=== PATIENT | male | born 1945 | race Caucasian/White ===

== ENCOUNTER 2016-08-06 09:16 | Outpatient (RCR) | payer MEDICARE ==
--- OUTSIDE RECORDS SUMMARY | 2016-06-25 08:48 | XMS REPORT | Continuity of Care Document ---
Author Author [facility] Organization [facility] Address Unknown Phone Unavailable Care Team Providers Care Keymodule Assembly Machine Tender Name Role Phone LEONCIO YI DO PCP Insurance Providers Payer Name Policy Number Subscriber Name Relationship [employer] [id number] [place]ica Chambers 16 Self / Same As Patient Advance Directives Directive Response Recorded Date/Time Advance Directives No 01/11/16 11:15am Health Care Power of Aluminum Polisher No 01/11/16 11:15am Organ Donor No 01/11/16 11:15am Problems Active Problems Medical Problem Onset Date Status Drew's cyst of knee Unknown Acute Pain of right lower extremity Unknown Acute Small bowel obstruction Unknown Acute Swelling of right lower extremity Unknown Acute Medications Current Home Medications Medication Dose Units Route Directions Days/Qty Instructions Start Date Omeprazole 20 Mg 20 Mg Oral Daily 11/23/13 Atenolol 50 Mg 50 Mg Oral Daily 30 Days 12/08/13 Aspirin 81 Mg 81 Mg Oral Daily 0 03/21/14 Loratadine 10 Mg 10 Mg Oral 12/03/14 Tramadol Hcl 50 Mg 50 Mg Oral Every 4HRS as needed for Pain Prednisone 20 Mg 20 Mg Oral Twice A Day 01/11/16 Past Home Medications Medication Directions Ordered Status Multivitamin 1 Each Tablet, 1 Each Oral Daily 11/23/13 Discontinued Calcium Carbonate/Vitamin D3 1 Each Capsule, 1 Each Oral Daily 11/23/13 Discontinued Ca Cmb No.1/Vit D3/B-6/Fa/B12 1 Each Tablet, 1 Each Oral 11/23/13 Discontinued Aspirin 81 Mg Tabec, 81 Mg Oral Daily 11/27/13 Discontinued Acetaminophen/Hydrocodone Bitart 1 Each Tablet, 1-2 Each Oral Q 4 - 6 Hr Prn 12/08/13 Discontinued Ca Cmb No.1/Vit D3/B-6/Fa/B12 1 Each Tablet, 1 Each Oral Daily 03/19/14 Discontinued Vitamin E Mixed 400 Unit Tablet, 400 Unit Oral Daily 03/19/14 Discontinued Multivitamins W-Minerals/Lut 1 Each Tablet, 1 Each Oral Daily 03/19/14 Discontinued Tramadol Hcl 50 Mg Tablet, 50 Mg Oral Every 12 Hours for Pain 03/21/14 Discontinued Social History Social History Problem Response Recorded Date/Time Alcohol Use Denies Use 01/11/2016 11:15am Recreational Drug Use No 01/11/2016 11:15am Recent Foreign Travel No 02/18/2014 2:30am Recent Infectious Disease Exposure No 02/18/2014 2:30am Hospitalization with Isolation Denies 02/22/2014 11:15am Sexually Transmitted Disease No 01/11/2016 11:15am HIV/AIDS No 01/11/2016 11:15am Do you dip or chew tobacco? No 01/11/2016 11:15am Sexually Transmitted Disease No 01/11/2016 11:15am Hospitalization with Isolation Denies 02/22/2014 11:15am Hx Sexually Transmitted Disorders No 03/21/2014 6:00am Hospital Discharge Instructions No hospital discharge instructions. Plan of Care Prescriptions See Medication Section Functional Status No functional status results. Allergies, Adverse Reactions, Alerts No known allergies. Immunizations No immunization records. Vital Signs No known vital signs results. Results Laboratory Results Test Name Result Units Flags Reference Collection Date/Time Result Date/ Time Comments White Blood Count 9.8 10^3/uL 4.3-11.0 01/16/2016 9:57am 01/16/2016 10: 01am Red Blood Count 4.72 10^6/uL 4.35-5.85 01/16/2016 9:57am 01/16/2016 10: 01am Hemoglobin 14.5 G/DL 13.3-17.7 01/16/2016 9:57am 01/16/2016 10:01am Hematocrit 42 % 40-54 01/16/2016 9:57am 01/16/2016 10:01am Mean Corpuscular Volume 90 FL 80-99 01/16/2016 9:57am 01/16/2016 10: 01am Mean Corpuscular Hemoglobin 31 PG 25-34 01/16/2016 9:57am 01/16/2016 10 :01am Mean Corpuscular Hemoglobin Concent 34 G/DL 32-36 01/16/2016 9:57am 10:01am Red Cell Distribution Width 12.4 % 10.0-14.5 01/16/2016 9:57am 2015 10:01am Platelet Count 254 10^3/uL 130-400 01/16/2016 9:57am 01/16/2016 10: 01am Mean Platelet Volume 9.1 FL 7.4-10.4 01/16/2016 9:57am 01/16/2016 10: 01am Neutrophils (%) (Auto) 71 % 42-75 01/16/2016 9:57am 01/16/2016 10:01am Lymphocytes (%) (Auto) 20 % 12-44 01/16/2016 9:57am 01/16/2016 10:01am Monocytes (%) (Auto) 9 % 0-12 01/16/2016 9:57am 01/16/2016 10:01am Eosinophils (%) (Auto) 0 % 0-10 01/16/2016 9:57am 01/16/2016 10:01am Basophils (%) (Auto) 0 % 0-10 01/16/2016 9:57am 01/16/2016 10:01am Neutrophils # (Auto) 7.0 X 10^3 1.8-7.8 01/16/2016 9:57am 01/16/2016 10 :01am Lymphocytes # (Auto) 2.0 X 10^3 1.0-4.0 01/16/2016 9:57am 01/16/2016 10 :01am Monocytes # (Auto) 0.8 X 10^3 0.0-1.0 01/16/2016 9:57am 01/16/2016 10: 01am Eosinophils # (Auto) 0.0 10^3/uL 0.0-0.3 01/16/2016 9:57am 01/16/2016 10:01am Basophils # (Auto) 0.0 10^3/uL 0.0-0.1 01/16/2016 9:57am 01/16/2016 10: 01am Sodium Level 136 MMOL/L 135-145 01/16/2016 9:57am 01/16/2016 10:45am Potassium Level 4.8 MMOL/L 3.6-5.0 01/16/2016 9:57am 01/16/2016 10: 45am Chloride Level 100 MMOL/L 98-107 01/16/2016 9:57am 01/16/2016 10:45am Carbon Dioxide Level 26 MMOL/L 21-32 01/16/2016 9:57am 01/16/2016 10: 45am Anion Gap 10 MMOL/L 5-14 01/16/2016 9:57am 01/16/2016 10:45am Blood Urea Nitrogen 19 MG/DL H 7-18 01/16/2016 9:57am 01/16/2016 10:45am Creatinine 0.92 MG/DL 0.60-1.30 01/16/2016 9:57am 01/16/2016 10:45am BUN/Creatinine Ratio 21 01/16/2016 9:57am 01/16/2016 10:45am Estimat Glomerular Filtration Rate > 60 01/16/2016 9:57am 2015 10:45am GFR INTERPRETIVE DATA UNITS FOR ESTIMATED GFR (eGFR): mL/min/1.73 M2 REFERENCE RANGE FOR ESTIMATED GFR (eGFR) eGFR NORMAL eGFR >60 MODERATELY DECREASED eGFR 30-59 SEVERLY DECREASED eGFR 15-29 KIDNEY FAILURE <15 (OR DIALYSIS) Glucose Level 91 MG/DL 70-105 01/16/2016 9:57am 01/16/2016 10:45am Calcium Level 9.4 MG/DL 8.5-10.1 01/16/2016 9:57am 01/16/2016 10:45am Total Bilirubin 0.5 MG/DL 0.1-1.0 01/16/2016 9:57am 01/16/2016 10:45am Alkaline Phosphatase 31 U/L L 40-136 01/16/2016 9:57am 01/16/2016 10: 45am Aspartate Amino Transf (AST/SGOT) 11 U/L 5-34 01/16/2016 9:57am 2015 10:45am Alanine Aminotransferase (ALT/SGPT) 14 U/L 0-55 01/16/2016 9:57am 01/15 10:45am Total Protein 7.0 G/DL 6.4-8.2 01/16/2016 9:57am 01/16/2016 10:45am Albumin 4.3 G/DL 3.2-4.5 01/16/2016 9:57am 01/16/2016 10:45am Procedures No known history of procedures. Encounters Encounter Location Arrival/Admit Date Discharge/Depart Date Attending Provider Discharged Rec[facility]ring [facility] 01/16/16 9:31am 11:59pm RONALD EASTMAN
[2016-06-25 09:10] LABS: BASOPHILS % (AUTO) 0 % (0-10); EOSINOPHILS # (AUTO) 0.2 10^3/uL (0.0-0.3); EOSINOPHILS % (AUTO) 3 % (0-10); LYMPHOCYTES # (AUTO) 1.5 X 10^3 (1.0-4.0); LYMPHOCYTES % (AUTO) 27 % (12-44); MEAN CORPUSCULAR HEMOGLOBIN 31 PG (25-34); MEAN CORPUSCULAR HGB CONC 35 G/DL (32-36); MEAN CORPUSCULAR VOLUME 90 FL (80-99); MEAN PLATELET VOLUME 8.9 FL (7.4-10.4); MONOCYTES # (AUTO) 0.5 X 10^3 (0.0-1.0); MONOCYTES % (AUTO) 9 % (0-12); NEUTROPHILS # (AUTO) 3.4 X 10^3 (1.8-7.8); NEUTROPHILS % (AUTO) 61 % (42-75); PLATELET COUNT 247 10^3/uL (130-400); RED CELL DISTRIBUTION WIDTH 12.5 % (10.0-14.5); WHITE BLOOD COUNT 5.6 10^3/uL (4.3-11.0)
[2016-06-25 09:36] LABS: ALANINE AMINOTRANSFERASE 17 U/L (0-55); ALBUMIN 4.3 G/DL (3.2-4.5); ANION GAP 6 MMOL/L (5-14); ASPARTATE AMINO TRANSFERASE 17 U/L (5-34); BILIRUBIN,TOTAL 0.7 MG/DL (0.1-1.0); BLOOD UREA NITROGEN 15 MG/DL (7-18); BUN/CREATININE RATIO 16; CALCIUM 9.6 MG/DL (8.5-10.1); CARBON DIOXIDE 27 MMOL/L (21-32); CHLORIDE 100 MMOL/L (98-107); CREATININE SERUM 0.95 MG/DL (0.60-1.30); GFR ESTIMATED > 60; GLUCOSE 102 MG/DL (70-105); SODIUM 133 MMOL/L (135-145); TOTAL PROTEIN 7.1 G/DL (6.4-8.2)
[~2016-08-06 09:16] MED LIST: ASP81TEC PO; ATEN-158 PO; CA C1TAB26 PO; CALC1CAP21 PO; HYDR-707 PO; LORA10TA7 PO; MULT-850 PO; MULT-974 PO; OMEP20CA12 PO; PRD20T PO; TRAM-21 PO; TRAM50TA2 PO; VITA400T9 PO
== END 2016-09-23 | disposition home or self-care (01) ==
LOC: ONC 09:16
PROVIDERS: ATTEND Internal Medicine Hematology & Oncology
DX: C18.7 Malignant neoplasm of sigmoid colon (principal); N40.0 Benign prostatic hyperplasia without lower urinary tract symptoms; Z79.899 Other long term (current) drug therapy
CPT/HCPCS: 36415; 80053; 82378; 84153; 85025; 99213

== ENCOUNTER 2016-12-24 09:14 | Outpatient (RCR) | payer MEDICARE ==
[2016-12-24 09:42] LABS: BASOPHILS % (AUTO) 1 % (0-10); EOSINOPHILS # (AUTO) 0.2 10^3/uL (0.0-0.3); EOSINOPHILS % (AUTO) 4 % (0-10); LYMPHOCYTES # (AUTO) 1.4 X 10^3 (1.0-4.0); LYMPHOCYTES % (AUTO) 26 % (12-44); MEAN CORPUSCULAR HEMOGLOBIN 31 PG (25-34); MEAN CORPUSCULAR HGB CONC 34 G/DL (32-36); MEAN CORPUSCULAR VOLUME 91 FL (80-99); MEAN PLATELET VOLUME 8.9 FL (7.4-10.4); MONOCYTES # (AUTO) 0.5 X 10^3 (0.0-1.0); MONOCYTES % (AUTO) 8 % (0-12); NEUTROPHILS # (AUTO) 3.4 X 10^3 (1.8-7.8); NEUTROPHILS % (AUTO) 61 % (42-75); PLATELET COUNT 228 10^3/uL (130-400); RED BLOOD COUNT 4.46 10^6/uL (4.35-5.85); RED CELL DISTRIBUTION WIDTH 12.8 % (10.0-14.5); WHITE BLOOD COUNT 5.5 10^3/uL (4.3-11.0)
[2016-12-24 10:34] LABS: ALANINE AMINOTRANSFERASE 16 U/L (0-55); ALBUMIN 3.9 G/DL (3.2-4.5); ANION GAP 9 MMOL/L (5-14); ASPARTATE AMINO TRANSFERASE 14 U/L (5-34); BILIRUBIN,TOTAL 0.4 MG/DL (0.1-1.0); BLOOD UREA NITROGEN 12 MG/DL (7-18); BUN/CREATININE RATIO 13; CALCIUM 9.3 MG/DL (8.5-10.1); CARBON DIOXIDE 23 MMOL/L (21-32); CHLORIDE 104 MMOL/L (98-107); CREATININE SERUM 0.91 MG/DL (0.60-1.30); GFR ESTIMATED > 60; GLUCOSE 106 MG/DL (70-105); POTASSIUM 4.8 MMOL/L (3.6-5.0); SODIUM 136 MMOL/L (135-145); TOTAL PROTEIN 6.9 G/DL (6.4-8.2)
== END 2017-03-24 | disposition home or self-care (01) ==
LOC: ONC 09:14
PROVIDERS: ATTEND Internal Medicine Hematology & Oncology
DX: Z08 Encounter for follow-up examination after completed treatment for malignant neoplasm (principal); Z85.038 Personal history of other malignant neoplasm of large intestine; N40.0 Benign prostatic hyperplasia without lower urinary tract symptoms; E66.9 Obesity, unspecified; Z68.37 Body mass index [BMI] 37.0-37.9, adult; M17.0 Bilateral primary osteoarthritis of knee; Z79.899 Other long term (current) drug therapy
CPT/HCPCS: 36415; 80053; 82378; 84153; 85025; 99213

== ENCOUNTER 2017-06-30 08:20 | Outpatient (RCR) | payer MEDICARE ==
[2017-06-30 08:48] LABS: BASOPHILS # (AUTO) 0.1 10^3/uL (0.0-0.1); BASOPHILS % (AUTO) 1 % (0-10); EOSINOPHILS # (AUTO) 0.2 10^3/uL (0.0-0.3); EOSINOPHILS % (AUTO) 4 % (0-10); HEMATOCRIT 42 % (40-54); HEMOGLOBIN 14.1 G/DL (13.3-17.7); LYMPHOCYTES # (AUTO) 1.7 X 10^3 (1.0-4.0); LYMPHOCYTES % (AUTO) 29 % (12-44); MEAN CORPUSCULAR HEMOGLOBIN 31 PG (25-34); MEAN CORPUSCULAR HGB CONC 34 G/DL (32-36); MEAN CORPUSCULAR VOLUME 93 FL (80-99); MEAN PLATELET VOLUME 9.3 FL (7.4-10.4); MONOCYTES # (AUTO) 0.6 X 10^3 (0.0-1.0); MONOCYTES % (AUTO) 9 % (0-12); NEUTROPHILS # (AUTO) 3.5 X 10^3 (1.8-7.8); NEUTROPHILS % (AUTO) 58 % (42-75); PLATELET COUNT 240 10^3/uL (130-400); RED BLOOD COUNT 4.54 10^6/uL (4.35-5.85); RED CELL DISTRIBUTION WIDTH 12.4 % (10.0-14.5)
[2017-06-30 09:04] LABS: ALANINE AMINOTRANSFERASE 19 U/L (0-55); ALBUMIN 4.2 GM/DL (3.2-4.5); ALKALINE PHOSPHATASE 36 U/L (40-136); BILIRUBIN,TOTAL 0.7 MG/DL (0.1-1.0); BUN/CREATININE RATIO 11; CALCIUM 9.7 MG/DL (8.5-10.1); CARBON DIOXIDE 28 MMOL/L (21-32); CHLORIDE 101 MMOL/L (98-107); CREATININE SERUM 1.05 MG/DL (0.60-1.30); GFR ESTIMATED > 60; GLUCOSE 118 MG/DL (70-105); POTASSIUM 5.4 MMOL/L (3.6-5.0); SODIUM 137 MMOL/L (135-145); TOTAL PROTEIN 7.6 GM/DL (6.4-8.2)
== END 2017-09-28 | disposition home or self-care (01) ==
LOC: ONC 08:20
PROVIDERS: ATTEND Internal Medicine Hematology & Oncology
DX: Z08 Encounter for follow-up examination after completed treatment for malignant neoplasm (principal); Z85.038 Personal history of other malignant neoplasm of large intestine; N40.0 Benign prostatic hyperplasia without lower urinary tract symptoms; E66.9 Obesity, unspecified; Z68.36 Body mass index [BMI] 36.0-36.9, adult; M17.0 Bilateral primary osteoarthritis of knee; Z79.899 Other long term (current) drug therapy
CPT/HCPCS: 36415; 80053; 82378; 84153; 85025; 99213

== ENCOUNTER 2018-01-18 08:20 | Outpatient (RCR) | payer MEDICARE ==
[2017-11-24 09:12] LABS: BASOPHILS % (AUTO) 1 % (0-10); EOSINOPHILS # (AUTO) 0.2 10^3/uL (0.0-0.3); EOSINOPHILS % (AUTO) 3 % (0-10); HEMATOCRIT 39 % (40-54); HEMOGLOBIN 13.7 G/DL (13.3-17.7); LYMPHOCYTES # (AUTO) 1.3 X 10^3 (1.0-4.0); LYMPHOCYTES % (AUTO) 27 % (12-44); MEAN CORPUSCULAR HEMOGLOBIN 32 PG (25-34); MEAN CORPUSCULAR HGB CONC 35 G/DL (32-36); MEAN CORPUSCULAR VOLUME 92 FL (80-99); MEAN PLATELET VOLUME 8.9 FL (7.4-10.4); MONOCYTES # (AUTO) 0.4 X 10^3 (0.0-1.0); MONOCYTES % (AUTO) 8 % (0-12); NEUTROPHILS % (AUTO) 61 % (42-75); PLATELET COUNT 218 10^3/uL (130-400); RED BLOOD COUNT 4.29 10^6/uL (4.35-5.85); WHITE BLOOD COUNT 4.9 10^3/uL (4.3-11.0)
[2017-11-24 09:33] LABS: ALANINE AMINOTRANSFERASE 12 U/L (0-55); ALBUMIN 4.1 GM/DL (3.2-4.5); ALKALINE PHOSPHATASE 28 U/L (40-136); BILIRUBIN,TOTAL 0.5 MG/DL (0.1-1.0); BUN/CREATININE RATIO 14; CALCIUM 9.3 MG/DL (8.5-10.1); CARBON DIOXIDE 26 MMOL/L (21-32); CHLORIDE 104 MMOL/L (98-107); CREATININE SERUM 0.83 MG/DL (0.60-1.30); GFR ESTIMATED > 60; GLUCOSE 110 MG/DL (70-105); POTASSIUM 4.8 MMOL/L (3.6-5.0); SODIUM 135 MMOL/L (135-145)
[2018-01-18 09:22] LABS: BASOPHILS % (AUTO) 1 % (0-10); EOSINOPHILS # (AUTO) 0.3 10^3/uL (0.0-0.3); EOSINOPHILS % (AUTO) 5 % (0-10); HEMATOCRIT 40 % (40-54); HEMOGLOBIN 14.1 G/DL (13.3-17.7); LYMPHOCYTES # (AUTO) 1.4 X 10^3 (1.0-4.0); LYMPHOCYTES % (AUTO) 24 % (12-44); MEAN CORPUSCULAR HEMOGLOBIN 32 PG (25-34); MEAN CORPUSCULAR HGB CONC 35 G/DL (32-36); MEAN CORPUSCULAR VOLUME 91 FL (80-99); MEAN PLATELET VOLUME 9.5 FL (7.4-10.4); MONOCYTES # (AUTO) 0.5 X 10^3 (0.0-1.0); MONOCYTES % (AUTO) 8 % (0-12); NEUTROPHILS # (AUTO) 3.7 X 10^3 (1.8-7.8); NEUTROPHILS % (AUTO) 63 % (42-75); PLATELET COUNT 222 10^3/uL (130-400); RED BLOOD COUNT 4.38 10^6/uL (4.35-5.85); RED CELL DISTRIBUTION WIDTH 12.9 % (10.0-14.5); WHITE BLOOD COUNT 5.8 10^3/uL (4.3-11.0)
[2018-01-18 09:45] LABS: ALANINE AMINOTRANSFERASE 18 U/L (0-55); ALBUMIN 4.1 GM/DL (3.2-4.5); ALKALINE PHOSPHATASE 32 U/L (40-136); BILIRUBIN,TOTAL 0.5 MG/DL (0.1-1.0); BUN/CREATININE RATIO 15; CALCIUM 9.6 MG/DL (8.5-10.1); CARBON DIOXIDE 22 MMOL/L (21-32); CHLORIDE 104 MMOL/L (98-107); CREATININE SERUM 0.85 MG/DL (0.60-1.30); GFR ESTIMATED > 60; GLUCOSE 106 MG/DL (70-105); POTASSIUM 4.5 MMOL/L (3.6-5.0); SODIUM 135 MMOL/L (135-145)
== END 2018-02-22 | disposition home or self-care (01) ==
LOC: ONC 08:20
PROVIDERS: ATTEND Internal Medicine Hematology & Oncology
DX: Z08 Encounter for follow-up examination after completed treatment for malignant neoplasm (principal); Z85.038 Personal history of other malignant neoplasm of large intestine; N40.0 Benign prostatic hyperplasia without lower urinary tract symptoms; M17.0 Bilateral primary osteoarthritis of knee; E66.9 Obesity, unspecified; Z68.36 Body mass index [BMI] 36.0-36.9, adult; Z79.899 Other long term (current) drug therapy
CPT/HCPCS: 36415; 80053; 82378; 85025; 99213

== ENCOUNTER 2018-06-01 05:37 | Outpatient (CLI) | payer MEDICARE ==
[~2018-06-01] VITALS: Ht 175.3 cm; Wt 105.7 kg
[2018-06-01] MEDS ORDERED: ATEN50TA PO (12:45)
[2018-06-01] MEDS ORDERED: VITA400C60 PO (12:45)
[2018-06-01] MEDS ORDERED: ASPI-999 PO (12:45)
[2018-06-01] MEDS ORDERED: OMEP20CA12 PO (12:45)
[2018-06-01] MEDS ORDERED: CHOL2000 PO (12:45)
[2018-06-01] MEDS ORDERED: MULT-35 PO (12:45)
== END 2018-06-01 12:53 | disposition home or self-care (01) ==
LOC: PREOP 05:37
PROVIDERS: ATTEND Specialist
DX: Z01.818 Encounter for other preprocedural examination (principal)

== ENCOUNTER 2018-06-01 08:41 | Outpatient (RCR) | payer MEDICARE ==
[2018-06-01 08:52] LABS: BASOPHILS % (AUTO) 0 % (0-10); EOSINOPHILS # (AUTO) 0.2 10^3/uL (0.0-0.3); EOSINOPHILS % (AUTO) 2 % (0-10); HEMATOCRIT 44 % (40-54); HEMOGLOBIN 14.9 G/DL (13.3-17.7); LYMPHOCYTES # (AUTO) 2.6 X 10^3 (1.0-4.0); LYMPHOCYTES % (AUTO) 29 % (12-44); MEAN CORPUSCULAR HEMOGLOBIN 31 PG (25-34); MEAN CORPUSCULAR HGB CONC 34 G/DL (32-36); MEAN CORPUSCULAR VOLUME 92 FL (80-99); MONOCYTES # (AUTO) 0.8 X 10^3 (0.0-1.0); MONOCYTES % (AUTO) 9 % (0-12); NEUTROPHILS # (AUTO) 5.4 X 10^3 (1.8-7.8); NEUTROPHILS % (AUTO) 60 % (42-75); PLATELET COUNT 255 10^3/uL (130-400); RED CELL DISTRIBUTION WIDTH 13.2 % (10.0-14.5); WHITE BLOOD COUNT 9.1 10^3/uL (4.3-11.0)
[2018-06-01 09:19] LABS: ALANINE AMINOTRANSFERASE 15 U/L (0-55); ALBUMIN 4.3 GM/DL (3.2-4.5); ALKALINE PHOSPHATASE 36 U/L (40-136); BILIRUBIN,TOTAL 0.5 MG/DL (0.1-1.0); BUN/CREATININE RATIO 23; CALCIUM 9.8 MG/DL (8.5-10.1); CARBON DIOXIDE 25 MMOL/L (21-32); CHLORIDE 99 MMOL/L (98-107); CREATININE SERUM 0.95 MG/DL (0.60-1.30); GFR ESTIMATED > 60; GLUCOSE 105 MG/DL (70-105); POTASSIUM 4.4 MMOL/L (3.6-5.0); SODIUM 134 MMOL/L (135-145); TOTAL PROTEIN 7.4 GM/DL (6.4-8.2)
[2018-06-01] MEDS ORDERED: ATEN50TA PO (12:45)
[2018-06-01] MEDS ORDERED: MULT-35 PO (12:45)
[2018-06-01] MEDS ORDERED: OMEP20CA12 PO (12:45)
[2018-06-01] MEDS ORDERED: VITA400C60 PO (12:45)
[2018-06-01] MEDS ORDERED: CHOL2000 PO (12:45)
[2018-06-01] MEDS ORDERED: ASPI-999 PO (12:45)
== END 2018-08-30 | disposition home or self-care (01) ==
LOC: ONC 08:41
PROVIDERS: ATTEND Internal Medicine Hematology & Oncology
DX: Z08 Encounter for follow-up examination after completed treatment for malignant neoplasm (principal); Z85.038 Personal history of other malignant neoplasm of large intestine; N40.0 Benign prostatic hyperplasia without lower urinary tract symptoms; M17.0 Bilateral primary osteoarthritis of knee; E66.9 Obesity, unspecified; Z68.36 Body mass index [BMI] 36.0-36.9, adult; Z79.899 Other long term (current) drug therapy
CPT/HCPCS: 36415; 80053; 82378; 85025; 99213

== ENCOUNTER 2018-06-03 06:41 | Day surgery (SDC) | payer MEDICARE ==
[~2018-06-03] VITALS: Ht 175.3 cm; Wt 105.7 kg
[~2018-06-03 06:41] MED LIST changes: +ASPI-999 PO; +ATEN50TA PO; +CHOL2000 PO; +MULT-35 PO; +VITA400C60 PO
[2018-06-03 06:59] VITALS: BP 146/64
[2018-06-03] MEDS: TETRACAINE 0.5% OPHTH SOLN 4 ML BTL (SINGLE DOSE ONLY) OU PRN ×4 (07:01→07:19)
[2018-06-03] MEDS: TROPICAMIDE 1% OPH SOLN (MYDRIACYL) 15 ML BTL OU PRN ×3 (07:06→07:19)
[2018-06-03] MEDS: PHENYLEPHRINE 10% OPHTH (NEO-SYN) 5 ML BTL OU PRN ×3 (07:06→07:19)
[2018-06-03 08:00] VITALS: BP 146/64
--- NOTE | 2018-06-03 08:03 | Ophthalmologist Pre-Op Note ---
Pre-Operative Progress Note H&P Reviewed The H&P was reviewed, patient examined and no changes noted. Date H&P Reviewed: Jun 03, 2018 Time H&P Reviewed: 07:50 Pre-Op Dx Secondary Cataract, Bilateral Eyes KALA NESBITT MD Jun 03, 2018 08:03
--- NOTE | 2018-06-03 08:04 | Ophthalmology Operative Report ---
YAG Capsulotomy PREOPERATIVE DIAGNOSIS: Secondary Cataract Bilateral POSTOPERATIVE DIAGNOSIS: Secondary Cataract Bilateral PROCEDURE: YAG Capsulotomy, Bilateral SURGEON: Jai Nesbitt ANESTHESIA: Topical anesthesia COMPLICATIONS: None ESTIMATED BLOOD LOSS: Minimal DESCRIPTION OF PROCEDURE: After proper informed consent was obtained, the patient's, a 73 male , received one drop of Tropicamide and one drop of Tetracaine in each eye. The patient was then placed at the YAG laser and using a power of [ 4.5] millijoules and bursts [ 25] right eye and [ 21] left eye were used to fashion a central capsulotomy. The patient tolerated the procedure well without complications and the patient's pressure was [ 11/12] shortly after the laser. JAI NESBITT MD Jun 03, 2018 08:04
== END 2018-06-03 08:00 | disposition home or self-care (01) ==
LOC: SDC 06:41
PROVIDERS: ATTEND Specialist
DX: H26.493 Other secondary cataract, bilateral (principal); I10 Essential (primary) hypertension; Z85.038 Personal history of other malignant neoplasm of large intestine; Z80.1 Family history of malignant neoplasm of trachea, bronchus and lung; Z87.891 Personal history of nicotine dependence

== ENCOUNTER → 2020-01-17 | Outpatient (CLI) | payer MEDICARE ==
[~2020-01-17] MED LIST changes: +OMEP20CA18 PO; -TRAM50TA2 PO; +TRM50T PO
[2020-01-17 13:09] LABS: BASOPHILS % (AUTO) 0 % (0-10); EOSINOPHILS # (AUTO) 0.2 10^3/uL (0.0-0.3); EOSINOPHILS % (AUTO) 4 % (0-10); HEMATOCRIT 40 % (40-54); HEMOGLOBIN 13.8 G/DL (13.3-17.7); LYMPHOCYTES # (AUTO) 1.9 X 10^3 (1.0-4.0); LYMPHOCYTES % (AUTO) 27 % (12-44); MEAN CORPUSCULAR HEMOGLOBIN 31 PG (25-34); MEAN CORPUSCULAR HGB CONC 34 G/DL (32-36); MEAN CORPUSCULAR VOLUME 91 FL (80-99); MEAN PLATELET VOLUME 9.3 FL (7.4-10.4); MONOCYTES # (AUTO) 0.6 X 10^3 (0.0-1.0); MONOCYTES % (AUTO) 8 % (0-12); NEUTROPHILS # (AUTO) 4.1 X 10^3 (1.8-7.8); NEUTROPHILS % (AUTO) 60 % (42-75); PLATELET COUNT 209 10^3/uL (130-400); RED CELL DISTRIBUTION WIDTH 12.8 % (10.0-14.5); WHITE BLOOD COUNT 6.9 10^3/uL (4.3-11.0)
[2020-01-17 13:20] LABS: ALBUMIN 4.2 GM/DL (3.2-4.5)
[2020-01-17 13:21] LABS: CHLORIDE 103 MMOL/L (98-107); POTASSIUM 4.2 MMOL/L (3.6-5.0); SODIUM 133 MMOL/L (135-145)
[2020-01-17 13:22] LABS: CALCIUM 9.1 MG/DL (8.5-10.1)
[2020-01-17 13:23] LABS: GLUCOSE 88 MG/DL (70-105); TOTAL PROTEIN 7.1 GM/DL (6.4-8.2)
[2020-01-17 13:24] LABS: CARBON DIOXIDE 21 MMOL/L (21-32)
[2020-01-17 13:25] LABS: BILIRUBIN,TOTAL 0.7 MG/DL (0.1-1.0)
[2020-01-17 13:26] LABS: ALKALINE PHOSPHATASE 33 U/L (40-136)
[2020-01-17 13:27] LABS: CREATININE SERUM 0.87 MG/DL (0.60-1.30); GFR ESTIMATED > 60
[2020-01-17 13:28] LABS: BUN/CREATININE RATIO 15
[2020-01-17 13:30] LABS: ALANINE AMINOTRANSFERASE 20 U/L (0-55)
== END ==
LOC: EDSTATUS 03-01 10:42 → ONC 12:51
PROVIDERS: ATTEND Internal Medicine Hematology & Oncology
DX: Z08 Encounter for follow-up examination after completed treatment for malignant neoplasm (principal); Z85.038 Personal history of other malignant neoplasm of large intestine; N40.0 Benign prostatic hyperplasia without lower urinary tract symptoms; M17.0 Bilateral primary osteoarthritis of knee; E66.9 Obesity, unspecified; Z68.36 Body mass index [BMI] 36.0-36.9, adult; Z79.899 Other long term (current) drug therapy
CPT/HCPCS: 80053; 82378; 85025; G0463; 99213

== ENCOUNTER → 2020-04-16 | Outpatient (CLI) | payer MEDICARE | LOC: ONC 08:59 | PROVIDERS: ATTEND Internal Medicine Hematology & Oncology | DX: C18.9 Malignant neoplasm of colon, unspecified (principal) | CPT/HCPCS: 82378 ==

== ENCOUNTER → 2020-04-23 | Outpatient (CLI) | payer MEDICARE ==
[2020-04-23 11:07] LABS: BASOPHILS % (AUTO) 1 % (0-10); EOSINOPHILS # (AUTO) 0.2 10^3/uL (0.0-0.3); EOSINOPHILS % (AUTO) 3 % (0-10); HEMATOCRIT 43 % (40-54); HEMOGLOBIN 14.3 g/dL (13.3-17.7); LYMPHOCYTES # (AUTO) 1.5 10^3/uL (1.0-4.0); LYMPHOCYTES % (AUTO) 24 % (12-44); MEAN CORPUSCULAR HEMOGLOBIN 31 pg (25-34); MEAN CORPUSCULAR HGB CONC 33 g/dL (32-36); MEAN CORPUSCULAR VOLUME 92 fL (80-99); MEAN PLATELET VOLUME 9.2 fL (9.0-12.2); MONOCYTES # (AUTO) 0.5 10^3/uL (0.0-1.0); MONOCYTES % (AUTO) 9 % (0-12); NEUTROPHILS # (AUTO) 3.9 10^3/uL (1.8-7.8); NEUTROPHILS % (AUTO) 64 % (42-75); PLATELET COUNT 216 10^3/uL (130-400); WHITE BLOOD COUNT 6.2 10^3/uL (4.3-11.0)
[2020-04-23 11:27] LABS: ALANINE AMINOTRANSFERASE 17 U/L (0-55); ALBUMIN 4.2 GM/DL (3.2-4.5); ALKALINE PHOSPHATASE 33 U/L (40-136); BILIRUBIN,TOTAL 0.6 MG/DL (0.1-1.0); BUN/CREATININE RATIO 12; CALCIUM 9.1 MG/DL (8.5-10.1); CARBON DIOXIDE 19 MMOL/L (21-32); CHLORIDE 100 MMOL/L (98-107); GFR ESTIMATED > 60; GLUCOSE 106 MG/DL (70-105); POTASSIUM 4.6 MMOL/L (3.6-5.0); SODIUM 130 MMOL/L (135-145); TOTAL PROTEIN 7.1 GM/DL (6.4-8.2)
== END ==
LOC: ONC 10:57
PROVIDERS: ATTEND Internal Medicine Hematology & Oncology
DX: C18.9 Malignant neoplasm of colon, unspecified (principal); R97.0 Elevated carcinoembryonic antigen [CEA]
CPT/HCPCS: 80053; 85025

== ENCOUNTER → 2020-04-30 | Outpatient (CLI) | payer MEDICARE ==
[~2020-04-30] MED LIST changes: +CATHETER FLUSH 10 ML SYR IV PRN; +HOLD METFORMIN - RECEIVED CONTRAST 20 ML VIAL IV SCH; +IOHEXOL 350 MG/ML 100 ML (OMNIPAQUE 350) VIAL IV ONE; +NS 100 ML (IVPB) BAG IV ONE
--- NOTE | 2020-04-30 10:48 | Diagnostic Imaging Report ---
PROCEDURE: CT chest with contrast, CT abdomen and pelvis with and without contrast. TECHNIQUE: Pre and post intravenous contrast axial imaging of the abdomen and pelvis and post contrast axial imaging of the chest were performed. Auto Exposure Controls were utilized during the CT exam to meet ALARA standards for radiation dose reduction. INDICATION: Colon cancer with elevated CEA markers. COMPARISON: CT abdomen and pelvis from 02/18/2014 and PET/CT of 01/01/2015. FINDINGS: CT CHEST: No endoluminal nodule within the trachea. The part solid lesion in the right upper lobe with central air-filled cavitation has increased in size since PET/CT of 01/01/2015, now measuring 3.2 cm in maximal dimension (previously 2.4 cm). No new pulmonary nodule or mass. Thyroid is normal. No supraclavicular or axillary lymphadenopathy. No mediastinal, hilar or juxtaphrenic lymphadenopathy. Heart is normal in size without pericardial effusion. Coronary artery calcifications are unchanged. Normal caliber thoracic aorta. Esophagus is unremarkable. No lytic or blastic skeletal lesions in the chest. CT ABDOMEN AND PELVIS: No free intraperitoneal air or fluid. The liver enhances normally without focal lesion that would suggest metastasis. Gallbladder is normal. The spleen and pancreas are also normal. No adrenal mass. Kidneys enhance symmetrically without solid mass lesion or obstruction. There are a few benign cysts within the left kidney that are stable since prior examination and measure no more than 1.5 cm in size. The urinary bladder is normally filled. The prostate remains mildly enlarged measuring 6.6 cm in maximal dimension. Stomach is decompressed. No dilated loops of bowel. Appendix is normal. No pericolonic inflammatory change. Anastomotic staple line is present in the rectosigmoid colon and there is no abnormal soft tissue along the anastomosis. No regional lymphadenopathy or abdominal lymphadenopathy. No lytic or blastic skeletal lesions. Mild degenerative arthritis of the SI joints. IMPRESSION: 1. Part solid and central cavitary lesion in the right upper lobe has mildly increased in size since PET/CT of five years prior (01/01/2015). Given slow open shank coverer five years, this most likely represents a low-grade primary adenocarcinoma of the lung. Superimposed infection on chronic lesion is thought less likely. Consider CT-guided biopsy for further assessment, if deemed clinically warranted. PET/CT may be useful, although given the slow growth of this lesion, it may not be hypermetabolic reactive. 2. No lymphadenopathy in the chest. 3. No abnormality in the abdomen or pelvis that would indicate local recurrence or metastatic disease. Dictated by: Dictated on workstation # [id number]
== END ==
LOC: RAD 09:23
PROVIDERS: ATTEND Nurse Practitioner Adult Health
DX: C18.7 Malignant neoplasm of sigmoid colon (principal); R91.1 Solitary pulmonary nodule; R97.0 Elevated carcinoembryonic antigen [CEA]
CPT/HCPCS: 71260; 74178

== ENCOUNTER 2020-05-06 09:23 | Outpatient (CLI) | payer MEDICARE ==
[~2020-05-06] VITALS: Ht 175.3 cm; Wt 107.7 kg
[~2020-05-06 09:23] MED LIST changes: -CATHETER FLUSH 10 ML SYR IV PRN; -HOLD METFORMIN - RECEIVED CONTRAST 20 ML VIAL IV SCH; -IOHEXOL 350 MG/ML 100 ML (OMNIPAQUE 350) VIAL IV ONE; -NS 100 ML (IVPB) BAG IV ONE
[2020-05-06 09:30] VITALS: BP 139/75
--- NOTE | 2020-05-06 10:15 | NUR ---
DR BATISTA TO PT'S ROOM TO DISCUSS CANCELLATION OF CT LUNG BIOPSY DUE TO POSSIBILITY OF NEED FOR ADMISSION POST PROCEDURE IN LIGHT OF COVID 19 ADMISSION RESTRICTIONS
[2020-05-06] MEDS ORDERED: CARB15DR2 OU (10:25)
[2020-05-06] MEDS ORDERED: OLOP2.5D12 OU (10:25)
[2020-05-06] MEDS ORDERED: MULT-1136 PO (10:25)
== END 2020-05-06 10:15 | disposition home or self-care (01) ==
LOC: SDC 09:23
PROVIDERS: ATTEND Nurse Practitioner Adult Health
DX: R91.8 Other nonspecific abnormal finding of lung field (principal); R93.89 Abnormal findings on diagnostic imaging of other specified body structures; Z86.010 Personal history of colon polyps

== ENCOUNTER → 2020-10-10 | Outpatient (CLI) | payer MEDICARE ==
[~2020-10-10] MED LIST changes: +CARB15DR2 OU; +MULT-1136 PO; +OLOP2.5D12 OU
--- NOTE | 2020-10-10 13:06 | Diagnostic Imaging Report ---
INDICATION: Left knee pain and swelling. Time of exam 10:42 AM 3 views left knee demonstrate fairly significant medial and patellofemoral compartment degenerative change with joint space narrowing and marginal spurring. Lateral compartments maintained. There is spurring of the tibial spines. No fracture, dislocation or effusion is seen. IMPRESSION: Degenerative changes. No acute bony abnormality is detected. Dictated by: Dictated on workstation # [id number]
== END ==
LOC: RAD 10:23
PROVIDERS: ATTEND Family Medicine
DX: M17.12 Unilateral primary osteoarthritis, left knee (principal)
CPT/HCPCS: 73562

== ENCOUNTER → 2020-12-31 | Outpatient (CLI) | payer MEDICARE ==
[2020-12-31 08:59] LABS: BASOPHILS % (AUTO) 1 % (0-10); EOSINOPHILS # (AUTO) 0.2 10^3/uL (0.0-0.3); EOSINOPHILS % (AUTO) 4 % (0-10); HEMATOCRIT 42 % (40-54); HEMOGLOBIN 14.2 g/dL (13.3-17.7); LYMPHOCYTES % (AUTO) 19 % (12-44); MEAN CORPUSCULAR HEMOGLOBIN 32 pg (25-34); MEAN CORPUSCULAR HGB CONC 34 g/dL (32-36); MEAN CORPUSCULAR VOLUME 92 fL (80-99); MEAN PLATELET VOLUME 9.1 fL (9.0-12.2); MONOCYTES # (AUTO) 0.5 10^3/uL (0.0-1.0); MONOCYTES % (AUTO) 9 % (0-12); NEUTROPHILS # (AUTO) 3.6 10^3/uL (1.8-7.8); NEUTROPHILS % (AUTO) 66 % (42-75); PLATELET COUNT 206 10^3/uL (130-400); WHITE BLOOD COUNT 5.4 10^3/uL (4.3-11.0)
[2020-12-31 09:23] LABS: ALANINE AMINOTRANSFERASE 17 U/L (0-55); ALKALINE PHOSPHATASE 35 U/L (40-136); BILIRUBIN,TOTAL 0.5 MG/DL (0.1-1.0); BUN/CREATININE RATIO 12; CARBON DIOXIDE 22 MMOL/L (21-32); CHLORIDE 101 MMOL/L (98-107); CREATININE SERUM 0.86 MG/DL (0.60-1.30); GFR ESTIMATED > 60; GLUCOSE 107 MG/DL (70-105); POTASSIUM 4.5 MMOL/L (3.6-5.0); SODIUM 130 MMOL/L (135-145); TOTAL PROTEIN 6.7 GM/DL (6.4-8.2)
== END ==
LOC: ONC 08:43
PROVIDERS: ATTEND Internal Medicine Hematology & Oncology
DX: R91.1 Solitary pulmonary nodule (principal); M17.0 Bilateral primary osteoarthritis of knee; K21.9 Gastro-esophageal reflux disease without esophagitis; Z85.038 Personal history of other malignant neoplasm of large intestine; Z90.49 Acquired absence of other specified parts of digestive tract
CPT/HCPCS: 80053; 82378; 85025; G0463; 99213

== ENCOUNTER → 2021-01-07 | Outpatient (CLI) | payer MEDICARE ==
[~2021-01-07] MED LIST changes: +CATHETER FLUSH 10 ML SYR IV PRN; +HOLD METFORMIN - RECEIVED CONTRAST 20 ML VIAL IV SCH; +IOHEXOL 350 MG/ML 100 ML (OMNIPAQUE 350) VIAL IV ONE; +NS 100 ML (IVPB) BAG IV ONE
--- NOTE | 2021-01-07 13:01 | Diagnostic Imaging Report ---
EXAMINATION: CT chest and abdomen with intravenous contrast. TECHNIQUE: Multiple contiguous axial images were obtained through the chest and abdomen after the uneventful administration of intravenous contrast. All CT scans use one or more of the following dose optimizing techniques: automated exposure control, MA and/or KvP adjustment based on patient size and exam type or iterative reconstruction. HISTORY: Pulmonary nodule. COMPARISON: 04/30/2020 FINDINGS: A part solid part groundglass and cystic nodule in the right upper lobe is increased in size measuring 3.5 x 2.1 x 4.8 cm, previously 3.0 x 1.9 x 4.3 cm. This is highly concerning for an adenocarcinoma spectrum lung malignancy. No pleural effusion. No pneumothorax. There is no edema or pneumonia. There is no axillary or supraclavicular lymphadenopathy. There is no mediastinal lymphadenopathy. Heart size is normal. There are moderate coronary artery calcifications. No pericardial effusion. Aorta is normal in caliber. 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 There is no biliary ductal dilation. Gallbladder is normal. Pancreas is normal. Spleen is normal. Adrenal glands are normal. There is a simple cyst in the left kidney. No suspicious renal lesions. There is no hydronephrosis. Visualized bowel is normal in caliber without obstruction or inflammation. No free fluid or air. No abdominal lymphadenopathy. Aorta is normal in caliber without aneurysm. There are no suspicious osseous lesions. IMPRESSION: 1. Slight increase in size of part solid and groundglass right upper lobe nodule with cystic spaces highly concerning for an adenocarcinoma spectrum lesion. 2. No metastatic disease seen. Dictated by: Dictated on workstation # [id number]
--- NOTE | 2021-01-07 15:49 | Diagnostic Imaging Report ---
INDICATION: Pulmonary nodule. EXAMINATION: Whole body bone scan. TECHNIQUE: 25.4 mCi of technetium 99m MDP was given intravenously. A whole body bone scan was obtained after an appropriate delay. FINDINGS: There is activity in both kidneys. There are mild degenerative changes in the knees and acromioclavicular joints. There is no abnormal uptake in the axial or appendicular skeleton that is suspicious for metastatic disease. IMPRESSION: Mild degenerative changes of the shoulders and knees. No evidence of metastatic disease. Dictated by: Dictated on workstation # [id number]
== END ==
LOC: CARD 12:00
PROVIDERS: ATTEND Internal Medicine Hematology & Oncology
DX: M17.0 Bilateral primary osteoarthritis of knee (principal); M19.012 Primary osteoarthritis, left shoulder; M19.011 Primary osteoarthritis, right shoulder; R91.1 Solitary pulmonary nodule; Z85.038 Personal history of other malignant neoplasm of large intestine
CPT/HCPCS: 71260; 74160; 78306; A9503

== ENCOUNTER 2021-01-08 13:24 | Outpatient (RCR) | payer MEDICARE ==
[~2021-01-08 13:24] MED LIST changes: -CATHETER FLUSH 10 ML SYR IV PRN; -HOLD METFORMIN - RECEIVED CONTRAST 20 ML VIAL IV SCH; -IOHEXOL 350 MG/ML 100 ML (OMNIPAQUE 350) VIAL IV ONE; -NS 100 ML (IVPB) BAG IV ONE
== END 2021-04-08 | disposition home or self-care (01) ==
LOC: ONC 13:24
PROVIDERS: ATTEND Internal Medicine Hematology & Oncology
DX: Z08 Encounter for follow-up examination after completed treatment for malignant neoplasm (principal); Z85.038 Personal history of other malignant neoplasm of large intestine; M17.0 Bilateral primary osteoarthritis of knee; K21.9 Gastro-esophageal reflux disease without esophagitis; R91.1 Solitary pulmonary nodule; Z90.49 Acquired absence of other specified parts of digestive tract
CPT/HCPCS: 99213

== ENCOUNTER → 2021-01-14 | Outpatient (CLI) | payer MEDICARE ==
--- NOTE | 2021-01-14 15:15 | Diagnostic Imaging Report ---
INDICATION: Solitary pulmonary nodule. Patient has history of colon carcinoma. TECHNIQUE: Serum blood glucose level at the time of injection is 109 mg/dL. Patient was administered 15.0 mCi F-18 FDG intravenously in the left forearm and PET imaging was performed from the top of the skull to mid thighs. Noncontrast CT was also performed for attenuation correction and anatomic correlation. COMPARISON: Correlation is made with prior CT from 01/07/2021 as well as prior PET/CT from 01/01/2015. FINDINGS: There is symmetric activity throughout the brain. Soft tissues of the neck are unremarkable. There is no hypermetabolic mediastinal or hilar lymphadenopathy. The area of groundglass opacity in the right upper lobe on recent CT does not demonstrate FDG avidity. No pulmonary parenchymal hypermetabolism is identified. There is physiologic activity throughout the GI and tracts of the abdomen and pelvis. No suspicious hypermetabolism is identified. Prostate remains enlarged. IMPRESSION: Unremarkable PET/CT study. The abnormal opacity in the right upper lobe on recent CT does not demonstrate FDG avidity. Continued close CT follow-up is recommended to confirm stability. Dictated by: Dictated on workstation # [id number]
== END ==
LOC: RAD 12:00
PROVIDERS: ATTEND Internal Medicine Hematology & Oncology
DX: R91.1 Solitary pulmonary nodule (principal); Z85.038 Personal history of other malignant neoplasm of large intestine
CPT/HCPCS: 78815; A9552